=== PATIENT | male | born 1955 | race American Indian/Alaskan Native ===

== ENCOUNTER 2017-12-16 18:55 | Emergency (ER) | payer MEDICAID, OTHER ==
[2017-12-16] MEDS ORDERED: Diphtheria,Pertussis(Acell),Tetanus Vaccine 0.5 ML SDV IM ONE (19:25)
[2017-12-16] MEDS ORDERED: Sodium Chloride 0.9% 10 ML Syringe FLUSH PRN (19:25)
[2017-12-16] MEDS ORDERED: Ampicillin/Sulbactam Na 3 GM in Sodium Chloride 0.9% 100 ML IV ONE (19:27)
[2017-12-16 19:30] VITALS: BP 161/86
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
--- NOTE | 2017-12-17 09:10 | CR ---
Right foot There is severe bunion formation at the first MTP joint. It is approximately 50% uncovering of the di stal metatarsal head. There are dislocations of the second and third MTP joints. Multiple hammertoe d eformities are demonstrated. There is no evidence of fracture. Impression: 1. Severe bunion information. 2. Dislocated second and third MTP joints. 3. Hammertoe's.
== END 2017-12-16 20:25 | disposition home or self-care (01) ==
LOC: JP.ED 18:55
DX: S91.331A Puncture wound without foreign body, right foot, initial encounter (principal); E11.621 Type 2 diabetes mellitus with foot ulcer; L97.519 Non-pressure chronic ulcer of other part of right foot with unspecified severity; E11.42 Type 2 diabetes mellitus with diabetic polyneuropathy; F17.210 Nicotine dependence, cigarettes, uncomplicated; W45.0XXA Nail entering through skin, initial encounter; Z88.5 Allergy status to narcotic agent; Z88.6 Allergy status to analgesic agent; Z79.899 Other long term (current) drug therapy
CPT/HCPCS: 73630-26-RT; 73630-RT; 90471; 90715; 96365; 99284-25; J0295; J7030; J7050

== ENCOUNTER 2018-02-15 20:48 | Emergency (ER) | payer MEDICAID, OTHER ==
[2018-02-15 21:01] VITALS: BP 166/94
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
== END 2018-02-15 22:39 | disposition home or self-care (01) ==
LOC: JP.ED 20:48
DX: E11.621 Type 2 diabetes mellitus with foot ulcer (principal); E11.40 Type 2 diabetes mellitus with diabetic neuropathy, unspecified; F17.210 Nicotine dependence, cigarettes, uncomplicated; Z88.6 Allergy status to analgesic agent; Z88.5 Allergy status to narcotic agent; Z79.899 Other long term (current) drug therapy; Z79.84 Long term (current) use of oral hypoglycemic drugs
CPT/HCPCS: 99283

== ENCOUNTER 2018-12-27 20:20 | Inpatient (IN) | payer MEDICAID ==
[2018-12-27] MEDS ORDERED: Linezolid 600 MG in Premix Bag 1 BAG IV SCH (21:00)
[2018-12-27] MEDS ORDERED: Lactated Ringers 1,000 ML IV SCH (21:00)
[2018-12-27] MEDS ORDERED: Ondansetron 4 MG/2 ML SDV IVPUSH ONE (21:02)
[2018-12-27] MEDS ORDERED: HYDROmorphone 1 MG/ML Syringe IVPUSH ONE (21:03)
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
[2018-12-27] MEDS ORDERED: Ondansetron 4 MG/2 ML SDV IV PRN (22:32)
--- NOTE | 2018-12-27 22:42 | CRLCR ---
INDICATION: ULCER GREAT TOE COMPARISON: 12/16/2017. FINDINGS: Two views of the right foot demonstrate postsurgical change from amputation of the 2nd toe at the level of the MTP joint, unchanged. There is new aggressive appearing osseous resorption at the medial margin of the head of the 1st metatarsal, highly suspicious for osteomyelitis. There is overlying soft tissue irregularity suggesting and ulcer. Advanced degenerative changes of the digits. No fracture identified. Diffuse soft tissue swelling. IMPRESSION: 1. Aggressive appearing osseous resorption at the medial head of the 1st metatarsal, highly suspicious for osteomyelitis. Probable overlying soft tissue ulcer. 2. Stable postsurgical changes from 2nd digit amputation. Dictated by Juan Rico MD @ 12/27/2018 10:40:44 PM Dictated by: Juan Rico MD @ 12/27/2018 22:40:57 (Electronically Signed)
[2018-12-27] MEDS: Lactated Ringers 1,000 ML IV SCH (23:38)
[2018-12-28] MEDS: HYDROmorphone 1 MG/ML Syringe IVPUSH PRN ×2 (00:22→07:25)
[2018-12-28] MEDS: Lactated Ringers 1,000 ML IV SCH (07:31)
[2018-12-28] MEDS: Linezolid 600 MG in Premix Bag 1 BAG IV SCH ×2 (11:09→22:24)
[2018-12-28] MEDS ORDERED: Midazolam 1 MG/ML 2 ML SDV ONE (11:41)
[2018-12-28] MEDS ORDERED: fentaNYL 100 MCG/2 ML SDV ONE (11:41)
[2018-12-28] MEDS ORDERED: Propofol 200 MG/20 ML SDV ONE (11:41)
[2018-12-28] MEDS ORDERED: Bupivacaine 0.5% 30 ML SDV ONE (11:42)
[2018-12-28] MEDS ORDERED: Bupivacaine 0.5% 50 ML MDV ONE (11:44)
[2018-12-28] MEDS ORDERED: Acetaminophen/HYDROcodone 325-5 MG Tab PO PRN (11:45)
[2018-12-28] MEDS ORDERED: fentaNYL 100 MCG/2 ML SDV IVPUSH PRN ×2 (11:45)
[2018-12-28] MEDS: metFORMIN 500 MG Tab PO SCH (14:46)
[2018-12-28] MEDS: glipiZIDE 5 MG Tab PO SCH (14:46)
[2018-12-28] MEDS: Lisinopril 20 MG Tab PO SCH (14:47)
[2018-12-28] MEDS: Nicotine 21 MG/24 Hr Patch TRDERM SCH (14:47)
--- NOTE | 2018-12-28 15:24 | PN ---
DATE OF SERVICE: 12/28/2018 SUBJECTIVE: The patient is doing quite well. He had good response to the antibiotics overnight. OBJECTIVE: VITAL SIGNS: Stable. CARDIOVASCULAR: Regular rhythm and rate. RESPIRATORY: Lungs are clear to auscultation bilaterally. SKIN: Dressings intact. Foul odor noted in the wound itself. ASSESSMENT AND PLAN: To the OR today for amputation of the right great toe. Risks, benefits, alternatives, and limitations including, but not limited to infection, bleeding, and BKA and AKA requirements along with the role of wound VAC and reoperation were all explained to the patient. He said he understands these risks and wished to proceed. Carter Barbour MD /[id number]
[2018-12-28] MEDS: Acetaminophen/HYDROcodone 325-5 MG Tab PO PRN ×2 (15:51→22:16)
--- NOTE | 2018-12-28 19:15 | CONS ---
DATE OF SERVICE: 12/26/2018 REFERRING PHYSICIAN: CONSULTING PHYSICIAN: Carter Barbour MD CONSULTING PHYSICIAN: Patrice Abraham MD REASON FOR CONSULTATION: Concern for osteomyelitis. HISTORY OF PRESENT ILLNESS: A 63-year-old male who is a poor historian with respect to his medical history. He presents with a wound on the medial aspect of his right foot over his metatarsal head. The time with respect to this is unknown, most likely in conversations with him, this has been present for weeks to months, modified by diabetes. He states his blood sugar is "well controlled" with blood sugars between 80 and 120. The patient does have a previous history amputation of his right second toe previously. SOCIAL HISTORY: He does present with family today. FAMILY HISTORY: Noncontributory at this moment. REVIEW OF SYSTEMS: GENERAL: No specific concerns. HEENT: No applicable differences. CARDIOVASCULAR: History of heart attack approximately year and half ago possibly. The patient is not quite sure that might not have been sensitive. ABDOMEN: Shows large ex-lap incision which he alluded to that this might have been an AAA repair, although he is not quite sure on that either. GASTROINTESTINAL: No blood in stool. GENITOURINARY: No dysuria. NEUROLOGICAL: No changes. PSYCHIATRIC: No changes. The remainder of review of systems was reviewed and negative. Endocrine as above. PHYSICAL EXAMINATION: VITAL SIGNS: Stable. HEENT: Pupils are equal. NECK: Supple. LUNGS: Clear. CARDIOVASCULAR: Regular rhythm and rate. ABDOMEN: Bowel sounds positive. Midline incision as described above. EXTREMITIES: On the right foot medial aspect over the metacarpal head, there is an ulceration which is consistent with probably diabetic wound, full thickness approximately 120 cm in size with fat layer and foul odor. LABORATORY RESULTS: Show a slightly elevated white blood cell count. Creatinine is 1.3. IMAGING: Shows osteomyelitis of metatarsal head on the right great toe. PLAN: The patient will be admitted overnight. He will be started immediately on antibiotics. We will plan for amputation of metatarsal head as indicated procedures first thing in the a.m. The patient was explained risks, benefits, alternatives, limitations including but not limited to infection, bleeding, requirement for reoperation, the possibility of septic shock, further amputation such as AKA and BKA and other risks not listed here. Also discussed the possibility and probability of a wound VAC. The patient understands all these and wishes to proceed. Carter Barbour MD /[id number]
[2018-12-29] MEDS: Lactated Ringers 1,000 ML IV SCH (01:04)
--- NOTE | 2018-12-29 08:33 | PN ---
DATE OF SERVICE: 12/29/2018 SUBJECTIVE: The patient is doing quite well. Pain is well controlled. No nausea, vomiting, shortness of breath, or chest pain. He does feel significantly better after the amputation. OBJECTIVE: VITAL SIGNS: Stable. CARDIOVASCULAR: Regular rhythm and rate. RESPIRATORY: Lungs are clear to auscultation bilaterally. SKIN: Wound VAC is intact. ASSESSMENT: Status post great toe amputation. PLAN: The patient will be discharged as soon as Discharge Planning can arrange home health care for wound VAC change every 3 days and Invanz 1 g IV q.24 hours x4 weeks. Carter Barbour MD /[id number]
[2018-12-29] MEDS: metFORMIN 500 MG Tab PO SCH (09:30)
[2018-12-29] MEDS: glipiZIDE 5 MG Tab PO SCH (09:30)
[2018-12-29] MEDS: Nicotine 21 MG/24 Hr Patch TRDERM SCH (09:30)
[2018-12-29] MEDS: Enoxaparin 40 MG/0.4 ML Syringe SUBCUT SCH (09:30)
[2018-12-29] MEDS: Lisinopril 20 MG Tab PO SCH (09:30)
[2018-12-29] MEDS: Linezolid 600 MG in Premix Bag 1 BAG IV SCH ×2 (11:38→22:19)
[2018-12-29] MEDS: Acetaminophen/HYDROcodone 325-5 MG Tab PO PRN (22:21)
[2018-12-30] MEDS: Acetaminophen/HYDROcodone 325-5 MG Tab PO PRN (03:42)
[2018-12-30 07:02] VITALS: BP 119/67
--- NOTE | 2018-12-30 07:59 | OR ---
DATE OF PROCEDURE: 12/28/2018 SURGEON: Carter Barbour MD PROCEDURES: 1. Right ray amputation with amputation of metatarsal head, right great toe. 2. Wound VAC placement. 3. Debridement, right medial wound, full thickness area debrided, rim edge, 1.8 x 2.2 cm ([id number]). 4. Z-plasty, right great toe amputation site. COMPLICATIONS: None. WOOD SCIENCE PROFESSOR: None. ANESTHESIA: MAC block/digital block. RISKS: Risks, benefits, alternatives, limitations including, but not limited to, infection, bleeding, subsequent requirement for BK or AK requirement for reoperation, and other risks not listed here were explained to the patient, who wished to proceed. PROCEDURE IN DETAIL: The patient was placed in supine position. After digital block and prepping and draping, a circumferential incision was made around the base of the toe and linear incision in line with the metatarsal would also be extended superior. Both these incisions were performed with 15 blade and subsequently followed with electrocautery. The toe itself was amputated using a TPS system. This would be sent as specimen 1. The ray type incision was continued down with electrocautery. The metatarsal head would be amputated greater than approximately 50% with a TPS. This was sent for specimen metatarsal head. Ligaments and tendons were stretched, amputated, and tied. Wound was thoroughly irrigated. The lateral wound communicated directly into the distal aspect of the metatarsal head. Because of this, a Z-type flap would have to performed. As essentially 3 lines of the Z-flap were already performed, they were then rotated and covered over this. The angles were reapproximated with 3-0 Vicryl and 2-0 nylon with gladys to reinforce. A single piece of iodoform gauze was placed from the incision to the wound itself. This was all thoroughly irrigated again. The wound VAC was then cut to size, placed, and a skin seal was performed. No further dressings were applied. The patient tolerated the procedure well. Carter Barbour MD /[id number]
[2018-12-30] MEDS: glipiZIDE 5 MG Tab PO SCH (08:01)
[2018-12-30] MEDS: Lisinopril 20 MG Tab PO SCH (08:01)
[2018-12-30] MEDS: metFORMIN 500 MG Tab PO SCH (08:01)
[2018-12-30] MEDS: Nicotine 21 MG/24 Hr Patch TRDERM SCH (08:02)
[2018-12-30] MEDS: Enoxaparin 40 MG/0.4 ML Syringe SUBCUT SCH (08:02)
[2018-12-30] MEDS ORDERED: Ertapenem 1 GM in Sodium Chloride 0.9% 100 ML IV SCH (09:00)
--- NOTE | 2018-12-30 10:22 | PN ---
DATE OF SERVICE: 12/30/2018 SUBJECTIVE: The patient continues to slowly improve. No nausea, vomiting, shortness of breath, or chest pain. The patient is tolerating diet. He is having bowel movements. OBJECTIVE: VITAL SIGNS: Stable. He remains afebrile. CARDIOVASCULAR: Regular rhythm and rate. RESPIRATORY: Lungs are clear to auscultation bilaterally. EXTREMITIES: Wound itself shows no evidence of cellulitis. There is some slight maceration around the edge of the wound. This is typical with wound VAC placement. ASSESSMENT: Status post toe amputation. PLAN: We will continue to work on discharge planning. Family advises me that his plan is to go home with the sister. I do not think that is the most advisable situation. We will continue to have Discharge Planning working on that. Carter Barbour MD /[id number]
--- NOTE | 2019-01-01 10:56 | DISCH ---
PROCEDURE PERFORMED DURING THIS HOSPITALIZATION: Re-amputation, right great toe and wound VAC placement. SUMMARY OF HOSPITAL COURSE: A pleasant 63-year-old male, who was seen and diagnosed with osteomyelitis of his metatarsal head. The patient was taken to the operating room and underwent a successful amputation. The patient also had a large open wound associated with this and this was dressed with a wound VAC. The patient continued to progress through his hospitalization and was treated with Invanz antibiotics. The patient was coordinated with Discharge Planning, who had recommended in conjunction with myself assisted correction facility versus home health care with IV antibiotics for 6 weeks. The patient decided to leave [facility]. This was due to the fact he did not want any further treatment. The patient was instructed and educated multiple times in plain [place] the fact that the patient will have worsening infection without any further treatment, which can result in amputation, septic shock, or . This was explained by the and the nursing staff several times. The patient understands these risks. He was offered followup clinic appointments. He was offered alternatives to this plan. He was offered multiple different versions of this plan, but has electively decided to leave.
== END 2018-12-30 11:50 | disposition left against medical advice (07) | DRG 617 ==
LOC: JP.ED 20:20 → JP.MS 22:32
PROVIDERS: ADMIT Surgery; ATTEND Surgery
PROC: 0Y6P0Z0 Detachment at Right 1st Toe, Complete, Open Approach (ICD-10-PCS; principal; 2018-12-28)
PROC: 0JDQ0ZZ Extraction of Right Foot Subcutaneous Tissue and Fascia, Open Approach (ICD-10-PCS; 2018-12-28)
PROC: 0HN Skin and Breast, Release (ICD-10-PCS; 2018-12-28)
PROC: 05HY33Z Insertion of Infusion Device into Upper Vein, Percutaneous Approach (ICD-10-PCS; 2018-12-29)
DX: E11.69 Type 2 diabetes mellitus with other specified complication (principal); M86.9 Osteomyelitis, unspecified; E11.621 Type 2 diabetes mellitus with foot ulcer; L97.519 Non-pressure chronic ulcer of other part of right foot with unspecified severity; Z79.84 Long term (current) use of oral hypoglycemic drugs; Z53.21 Procedure and treatment not carried out due to patient leaving prior to being seen by health care provider; E11.42 Type 2 diabetes mellitus with diabetic polyneuropathy; F17.210 Nicotine dependence, cigarettes, uncomplicated; I25.10 Atherosclerotic heart disease of native coronary artery without angina pectoris; I25.2 Old myocardial infarction; Z95.5 Presence of coronary angioplasty implant and graft; F32.9 Major depressive disorder, single episode, unspecified; H54.7 Unspecified visual loss; K08.109 Complete loss of teeth, unspecified cause, unspecified class; Z79.82 Long term (current) use of aspirin; Z88.5 Allergy status to narcotic agent; Z88.8 Allergy status to other drugs, medicaments and biological substances; Z89.421 Acquired absence of other right toe(s)
CPT/HCPCS: 36415; 73620-RT; 80048; 80053; 82962; 83605; 85025; 85027; 86140; 87040; 87070; 87075; 87077; 87186; 87205; 88304; 88305; 88311; 96365; 96368; 96375; 97162-GP; 97530-GP; 97605; 99284-25; A9270-GY; C1751; J1170; J1335; J1650; J2020; J2250; J2405; J2704; J3010; J3370; J3490; J7030; J7050; J7120

== ENCOUNTER 2019-04-06 06:39 | Emergency (ER) | payer MEDICAID ==
[2019-04-06] MEDS ORDERED: fentaNYL 100 MCG/2 ML SDV IVPUSH ONE ×2 (07:18→09:36)
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
[2019-04-06] MEDS ORDERED: Lactated Ringers 1,000 ML IV SCH (07:30)
[2019-04-06] MEDS ORDERED: Ertapenem 1 GM in Sodium Chloride 0.9% 50 ML IV SCH (07:30)
--- NOTE | 2019-04-06 08:55 | CR ---
FOOT RIGHT 2 views CLINICAL HISTORY:Foot ulcer, diabetes FINDINGS:Patient has significant soft tissue swelling involving the foot and ankle. The patient has had previous amputation of the distal aspect of the first metatarsal and the phalanges. Moderate bony overgrowth proximal to the amputation site likely chronic periosteal reaction. There are dorsal subluxations of the second and third phalanges. There is significant deformity of the fifth and sixth phalanges. Impression: Significant soft tissue swelling of the foot and ankle Interval amputation of the first toe at the distal metatarsal since December 21, 2018 Moderate periosteal reaction at the mid metatarsal. Osteomyelitis is not excluded Subluxations at the second third toes deformity of the fourth and fifth phalanges
[2019-04-06 09:47] VITALS: BP 126/78
== END 2019-04-06 10:53 ==
LOC: JP.ED 06:39
DX: L03.115 Cellulitis of right lower limb (principal); I25.2 Old myocardial infarction; I12.9 Hypertensive chronic kidney disease with stage 1 through stage 4 chronic kidney disease, or unspecified chronic kidney disease; E11.22 Type 2 diabetes mellitus with diabetic chronic kidney disease; N18.9 Chronic kidney disease, unspecified; E11.40 Type 2 diabetes mellitus with diabetic neuropathy, unspecified; E78.00 Pure hypercholesterolemia, unspecified; F17.210 Nicotine dependence, cigarettes, uncomplicated; Z88.6 Allergy status to analgesic agent; Z88.5 Allergy status to narcotic agent; Z79.84 Long term (current) use of oral hypoglycemic drugs; Z79.82 Long term (current) use of aspirin; Z79.02 Long term (current) use of antithrombotics/antiplatelets; Z79.899 Other long term (current) drug therapy; Z89.411 Acquired absence of right great toe
CPT/HCPCS: 36415; 73620; 80053; 83605; 85025; 86140; 87040; 96361; 96365; 96375; 96376; 99284; J1335; J3010; J7050; J7120

== ENCOUNTER 2019-09-25 19:33 | Emergency (ER) | payer MEDICAID ==
[2019-09-25 20:06] VITALS: BP 167/99; PULSE 102
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
--- NOTE | 2019-09-25 20:57 | CRLCR ---
Indication: Diabetic foot. Technique: Three views of the right foot. Comparison: April 06, 2019. Findings: Amputation other great toe is identified at the mid-diaphysis of the 1st metatarsal. Irregularity of the residual metatarsal is identified, stable. Subluxation of the 2nd and 3rd toes is identified. New irregularity and increased irregularity of the distal 3rd metatarsal is identified. Suspected acute osteomyelitis is identified. Air is identified within the soft tissues adjacent to the distal 2nd and 3rd metatarsals. Degenerative changes of the foot are identified. Impression: Findings suspicious for osteomyelitis of the distal 3rd metatarsal Dictated by Eugenie Barragan MD @ Sep 25 2019 8:52PM Signed by Dr. Eugenie Barragan @ Sep 25 2019 8:54PM
== END 2019-09-25 21:38 | disposition home or self-care (01) ==
LOC: JP.ED 19:33
DX: M86.171 Other acute osteomyelitis, right ankle and foot (principal); I25.10 Atherosclerotic heart disease of native coronary artery without angina pectoris; I25.2 Old myocardial infarction; E11.40 Type 2 diabetes mellitus with diabetic neuropathy, unspecified; E11.22 Type 2 diabetes mellitus with diabetic chronic kidney disease; I12.9 Hypertensive chronic kidney disease with stage 1 through stage 4 chronic kidney disease, or unspecified chronic kidney disease; N18.9 Chronic kidney disease, unspecified; F17.210 Nicotine dependence, cigarettes, uncomplicated; Z79.899 Other long term (current) drug therapy; Z88.6 Allergy status to analgesic agent; Z88.5 Allergy status to narcotic agent; Z79.82 Long term (current) use of aspirin; Z79.01 Long term (current) use of anticoagulants
CPT/HCPCS: 36415; 73630-RT; 80053; 83605; 85025; 99282; 99283

== ENCOUNTER 2021-02-20 09:27 | Emergency (ER) | payer MEDICAID ==
[2021-02-20] MEDS ORDERED: Sodium Chloride 0.9% 10 ML Syringe FLUSH PRN (09:43)
[2021-02-20] MEDS ORDERED: Aspirin 81 MG Tab.Chew PO ONE (09:45)
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
--- NOTE | 2021-02-20 11:17 | CR ---
CHEST: 2 view CLINICAL HISTORY:SOB COMPARISON:2016 FINDINGS: The heart size, pulmonary vascularity and hilar structures are normal. No infiltrate effusion or pneumothorax is seen. IMPRESSION: No acute cardiopulmonary process.
[2021-02-20] MEDS ORDERED: Sodium Chloride 0.9% 10 ML Syringe FLUSH ONE (11:35)
[2021-02-20] MEDS ORDERED: Iopamidol 755 Mg/ML 100 ML Bottle IV SCH (11:45)
[2021-02-20] MEDS ORDERED: Sodium Chloride 0.9% 100 ML IV SCH (11:45)
--- NOTE | 2021-02-20 12:37 | CT ---
Ang Chest CLINICAL HISTORY: SOB, high d-dimer TECHNIQUE: Thin section axial contiguous tomographic sections were taken through the chest after bolus IV iodinated contrast administration. Coronal and sagittal images were reconstructed. Auto dosage reduction and iterative reconstruction techniques employed. FINDINGS: There is some breathing motion. There are some small patchy bibasal densities which likely represent some atelectasis. No pulmonary masses identified. There are some mild interstitial prominence. There is mild generalized bronchial thickening. There are a few tiny nodular densities and some tree-in-bud formation in the lower lobes bilaterally No mediastinal mass or suspicious lymphadenopathy is seen. No filling defects are identified in the pulmonary arteries. IMPRESSION: No evidence of pulmonary embolus Mild bronchial thickening and mild interstitial prominence is felt to be chronic There are a few scattered small nodules with some tree-in-bud formation. This may be related to chronic infection
[2021-02-20] MEDS ORDERED: Metoprolol Tartrate 25 MG Tab PO ONE (12:50)
[2021-02-20] MEDS ORDERED: Ticagrelor 90 MG Tab PO ONE (12:50)
[2021-02-20] MEDS ORDERED: Heparin Sodium 5,000 Units/ML Vial IVPUSH ONE (12:51)
[2021-02-20] MEDS ORDERED: Heparin Sodium/D5W 25,000 UNITS/500 ML BAG IV SCH (13:00)
[2021-02-20] MEDS ORDERED: Furosemide 40 MG Tab PO ONE (13:21)
[2021-02-20 13:43] VITALS: BP 126/77; PULSE 86
== END 2021-02-20 13:51 | disposition home or self-care (01) ==
LOC: JP.ED 09:27
DX: I21.4 Non-ST elevation (NSTEMI) myocardial infarction (principal); I25.10 Atherosclerotic heart disease of native coronary artery without angina pectoris; E78.00 Pure hypercholesterolemia, unspecified; I25.2 Old myocardial infarction; E11.40 Type 2 diabetes mellitus with diabetic neuropathy, unspecified; J81.1 Chronic pulmonary edema; E11.65 Type 2 diabetes mellitus with hyperglycemia; E11.22 Type 2 diabetes mellitus with diabetic chronic kidney disease; I12.9 Hypertensive chronic kidney disease with stage 1 through stage 4 chronic kidney disease, or unspecified chronic kidney disease; N18.9 Chronic kidney disease, unspecified; Z88.5 Allergy status to narcotic agent; Z88.6 Allergy status to analgesic agent; Z79.82 Long term (current) use of aspirin; Z79.02 Long term (current) use of antithrombotics/antiplatelets; Z79.899 Other long term (current) drug therapy
CPT/HCPCS: 36415; 71046; 71275; 80048; 83880; 84484; 85027; 85379; 93005; 99285; A9270; Q9967

== ENCOUNTER 2021-10-07 03:47 | Emergency (ER) | payer MEDICAID ==
[2021-10-07] MEDS ORDERED: Furosemide 40 MG/4 ML VIAL IVPUSH ONE (04:49)
[2021-10-07 05:25] LABS: CORONAVIRUS COVID-19 NAA NEGATIVE (NEGATIVE)
[2021-10-07 06:08] VITALS: PULSE 96
[2021-10-07 07:33] VITALS: BP 135/90
== END 2021-10-07 08:44 | disposition left against medical advice (07) ==
LOC: JP.ED 03:47
DX: I21.4 Non-ST elevation (NSTEMI) myocardial infarction (principal); I25.10 Atherosclerotic heart disease of native coronary artery without angina pectoris; E78.00 Pure hypercholesterolemia, unspecified; I10 Essential (primary) hypertension; I25.2 Old myocardial infarction; E11.9 Type 2 diabetes mellitus without complications; Z88.5 Allergy status to narcotic agent; Z88.8 Allergy status to other drugs, medicaments and biological substances; Z79.82 Long term (current) use of aspirin; Z79.02 Long term (current) use of antithrombotics/antiplatelets; Z79.899 Other long term (current) drug therapy; Z20.822 Contact with and (suspected) exposure to COVID-19
CPT/HCPCS: 0241U; 36415; 71045; 80053; 81001; 83880; 84484; 85025; 85610; 93010; 96374; 99283; 99285-25; J1940

== ENCOUNTER 2022-01-10 23:40 | Emergency (ER) | payer MEDICAID ==
[2022-01-10 23:43] VITALS: BP 150/94; PULSE 100
[2022-01-11 00:17] LABS: ESTIMATED GFR 38 (>60)
[2022-01-11 00:20] LABS: TROPONIN I HIGH SENSITIVITY 445.2 pg/mL (<=60.3)
[2022-01-11] MEDS ORDERED: Furosemide 40 MG/4 ML VIAL IVPUSH ONE (00:46)
[2022-01-11] MEDS ORDERED: Furosemide 40 MG Tab PO ONE (01:02)
== END 2022-01-11 01:16 | disposition left against medical advice (07) ==
LOC: JP.ED 23:40
DX: I11.0 Hypertensive heart disease with heart failure (principal); I50.1 Left ventricular failure, unspecified; I25.10 Atherosclerotic heart disease of native coronary artery without angina pectoris; E78.00 Pure hypercholesterolemia, unspecified; E11.40 Type 2 diabetes mellitus with diabetic neuropathy, unspecified; F17.210 Nicotine dependence, cigarettes, uncomplicated; Z95.5 Presence of coronary angioplasty implant and graft; Z88.5 Allergy status to narcotic agent; Z88.8 Allergy status to other drugs, medicaments and biological substances; Z79.82 Long term (current) use of aspirin; Z79.02 Long term (current) use of antithrombotics/antiplatelets; Z79.01 Long term (current) use of anticoagulants
CPT/HCPCS: 36415; 71045; 80053; 83880; 84484; 85025; 86140; 93005; 93010; 99284; 99285; A9270

== ENCOUNTER 2022-09-15 05:54 | Emergency (ER) | payer MEDICARE, MEDICAID ==
[2022-09-15 06:41] LABS: CORONAVIRUS COVID-19 NAA NEGATIVE (NEGATIVE)
[2022-09-15 06:51] LABS: ESTIMATED GFR 29 mL/min (>60)
[2022-09-15 06:58] LABS: TROPONIN I HIGH SENSITIVITY 399.1 pg/mL (<=60.3)
[2022-09-15] MEDS ORDERED: Ondansetron 4 MG Tab.DIS PO ONE (08:04)
[2022-09-15 08:24] VITALS: BP 137/82; PULSE 98
[2022-09-15] MEDS ORDERED: Furosemide 40 MG Tab PO ONE (09:07)
== END 2022-09-15 09:20 | disposition home or self-care (01) ==
LOC: JP.ED 05:54
DX: F44.89 Other dissociative and conversion disorders (principal); R44.0 Auditory hallucinations; F15.10 Other stimulant abuse, uncomplicated; B97.4 Respiratory syncytial virus as the cause of diseases classified elsewhere; I13.0 Hypertensive heart and chronic kidney disease with heart failure and stage 1 through stage 4 chronic kidney disease, or unspecified chronic kidney disease; E11.22 Type 2 diabetes mellitus with diabetic chronic kidney disease; N18.30 Chronic kidney disease, stage 3 unspecified; I50.43 Acute on chronic combined systolic (congestive) and diastolic (congestive) heart failure; I25.10 Atherosclerotic heart disease of native coronary artery without angina pectoris; I25.2 Old myocardial infarction; E78.00 Pure hypercholesterolemia, unspecified; F32.A Depression, unspecified; Z20.822 Contact with and (suspected) exposure to COVID-19; Z88.5 Allergy status to narcotic agent; Z79.899 Other long term (current) drug therapy
CPT/HCPCS: 0241U; 36415; 36600; 70450; 71045; 80053; 80305; 80307; 81001; 82140; 82803; 82947; 83605; 83880; 84484; 85025; 85610; 85730; 93005; 93010; 99285; A9270; Q0162

== ENCOUNTER 2022-10-02 17:45 | Emergency (ER) | payer MEDICARE, MEDICAID ==
[2022-10-02] MEDS ORDERED: Sodium Chloride 0.9% 10 ML Syringe FLUSH PRN (18:04)
[2022-10-02 18:41] LABS: ESTIMATED GFR 27 mL/min (>60)
[2022-10-02 18:56] LABS: CORONAVIRUS COVID-19 NAA NEGATIVE (NEGATIVE)
[2022-10-02 20:11] VITALS: BP 116/73; PULSE 70
== END 2022-10-02 20:08 | disposition home or self-care (01) ==
LOC: JP.ED 17:45
DX: J18.9 Pneumonia, unspecified organism (principal); R41.0 Disorientation, unspecified; F15.10 Other stimulant abuse, uncomplicated; I25.10 Atherosclerotic heart disease of native coronary artery without angina pectoris; I13.0 Hypertensive heart and chronic kidney disease with heart failure and stage 1 through stage 4 chronic kidney disease, or unspecified chronic kidney disease; E11.22 Type 2 diabetes mellitus with diabetic chronic kidney disease; N18.9 Chronic kidney disease, unspecified; I50.9 Heart failure, unspecified; E78.00 Pure hypercholesterolemia, unspecified; I25.2 Old myocardial infarction; E11.40 Type 2 diabetes mellitus with diabetic neuropathy, unspecified; Z88.6 Allergy status to analgesic agent; Z88.5 Allergy status to narcotic agent; Z79.82 Long term (current) use of aspirin; Z79.02 Long term (current) use of antithrombotics/antiplatelets; Z79.899 Other long term (current) drug therapy; Z79.84 Long term (current) use of oral hypoglycemic drugs; Z20.822 Contact with and (suspected) exposure to COVID-19
CPT/HCPCS: 0241U; 36415; 71046; 80053; 80305; 80307; 81001; 83605; 85025; 87040; 99285; J3490

== ENCOUNTER 2022-10-06 11:48 | Emergency (ER) | payer MEDICARE, MEDICAID ==
[2022-10-06] MEDS ORDERED: Sodium Chloride 0.9% 1,000 ML IV SCH (12:30)
[2022-10-06] MEDS ORDERED: Sodium Chloride 0.9% 10 ML Syringe FLUSH PRN (12:30)
[2022-10-06] MEDS ORDERED: Ketorolac 30 MG/ML SDV IVPUSH ONE (12:31)
[2022-10-06] MEDS ORDERED: diphenhydrAMINE 50 MG/ML SDV IVPUSH ONE (12:32)
[2022-10-06] MEDS ORDERED: Prochlorperazine 10 MG/2 ML SDV IVPUSH ONE (12:32)
[2022-10-06 13:16] LABS: ESTIMATED GFR 24 mL/min (>60)
[2022-10-06 13:19] LABS: TROPONIN I HIGH SENSITIVITY 223.3 pg/mL (<=60.3)
[2022-10-06 18:37] VITALS: BP 131/67; PULSE 74
== END 2022-10-06 19:02 | disposition home or self-care (01) ==
LOC: JP.ED 11:48
DX: I25.10 Atherosclerotic heart disease of native coronary artery without angina pectoris (principal); I13.0 Hypertensive heart and chronic kidney disease with heart failure and stage 1 through stage 4 chronic kidney disease, or unspecified chronic kidney disease; E11.22 Type 2 diabetes mellitus with diabetic chronic kidney disease; N18.4 Chronic kidney disease, stage 4 (severe); I50.9 Heart failure, unspecified; E78.00 Pure hypercholesterolemia, unspecified; I25.2 Old myocardial infarction; E11.40 Type 2 diabetes mellitus with diabetic neuropathy, unspecified; Z88.6 Allergy status to analgesic agent; Z88.5 Allergy status to narcotic agent; Z79.899 Other long term (current) drug therapy; Z79.02 Long term (current) use of antithrombotics/antiplatelets; Z79.82 Long term (current) use of aspirin; Z79.84 Long term (current) use of oral hypoglycemic drugs; Z79.01 Long term (current) use of anticoagulants
CPT/HCPCS: 36415; 36600; 70450; 80053; 80307; 82140; 82803; 83605; 84484; 85025; 85610; 96361; 96374; 96375; 99284; J0780; J1200; J1885; J3490; J7030

== ENCOUNTER 2022-12-22 08:23 | Emergency (ER) | payer MEDICARE, MEDICAID ==
[2022-12-22] MEDS ORDERED: Furosemide 20 MG/2 ML VIAL IVPUSH ONE (09:16)
[2022-12-22] MEDS ORDERED: Albuterol 0.083% 2.5 MG/3 ML Neb Soln NEB ONE (09:23)
[2022-12-22 09:33] LABS: BASE EXCESS ARTERIAL -2.9 mm/L; CARBOXYHEMOGLOBIN 2.2 % (0.0-1.6); METHEMOGLOBIN 0.7 %; O2 SATURATION ARTERIAL 97.2 % (95.0-98.0); OXYHEMOGLOBIN 94.4 %; PCO2 ARTERIAL 29.9 mmHg (35.0-42.0); PO2 ARTERIAL 84.2 mmHg (75.0-100.0); TOTAL HEMOGLOBIN 10.7 g/dL (13.5-18.0)
[2022-12-22 09:36] LABS: BASOPHILS ABSOLUTE AUTO 0.07 K/uL (0.00-0.10); EOSINOPHILS ABSOLUTE AUTO 0.31 K/uL (0.00-0.40); EOSINOPHILS PERCENT AUTO 4.6 % (0.0-5.4); HEMATOCRIT 33.9 % (38.4-49.7); HEMOGLOBIN 10.8 g/dL (12.9-16.9); IMMATURE GRAN ABSOLUTE AUTO 0.03 K/uL (0.00-0.23); IMMATURE GRAN PERCENT AUTO 0.4 % (0.0-0.7); LYMPHOCYTES ABSOLUTE AUTO 0.66 K/uL (0.8-3.3); LYMPHOCYTES PERCENT AUTO 9.8 % (11.4-47.7); MEAN CORPUSCULAR HEMOGLOBIN 26.1 pg (31.6-35.5); MEAN CORPUSCULAR HGB CONC 31.9 g/dL (31.6-35.5); MEAN CORPUSCULAR VOLUME 81.9 fL (81.4-99.0); MONOCYTES ABSOLUTE AUTO 0.79 K/uL (0.20-0.90); MONOCYTES PERCENT AUTO 11.8 % (3.3-12.6); NEUTROPHILS ABSOLUTE AUTO 4.85 K/uL (1.0-7.6); NEUTROPHILS PERCENT AUTO 72.4 % (40.0-78.1); PLATELET COUNT,PLT 214 K/uL (130-375); RED BLOOD CELL COUNT 4.14 M/uL (4.14-5.76); WHITE BLOOD CELL COUNT,WBC 6.7 K/uL (3.2-11.0)
[2022-12-22 09:53] LABS: INR 1.2; PROTHROMBIN TIME 11.6 sec (9.2-10.6)
[2022-12-22 10:03] VITALS: BP 126/82; PULSE 69
[2022-12-22 10:05] LABS: A/G RATIO 0.4 (1.2-2.2); ALANINE AMINOTRANSFERASE,ALT 18 U/L (12-78); ALBUMIN 2.1 g/dL (3.4-5.0); ALKALINE PHOSPHATASE 143 U/L (46-116); AMYLASE 48 U/L (25-115); ASPARTATE AMNIOTRANSFERASE,AST 26 U/L (15-37); BILIRUBIN TOTAL 0.9 mg/dL (0.2-1.0); BLOOD UREA NITROGEN,BUN 52 mg/dL (7-18); CALCIUM 7.9 mg/dL (8.5-10.1); CARBON DIOXIDE,CO2 24 mmol/L (21-32); CHLORIDE,CL 102 mmol/L (100-108); CREATININE 2.7 mg/dL (0.8-1.3); EST CRCL DRUG DOSING (CG) 28.16 mL/min; ESTIMATED GFR 25 mL/min (>60); GLUCOSE RANDOM 153 mg/dL (74-106); LIPASE 103 U/L (73-393); MAGNESIUM 1.7 mg/dL (1.8-2.4); PHOSPHORUS 5.6 mg/dL (2.5-4.9); POTASSIUM,K 3.8 mmol/L (3.6-5.2); PRO B-TYPE NATRIUR PEPT,BNPPRO 28088 pg/mL (5-125); SODIUM,NA 135 mmol/L (140-148)
[2022-12-22 10:07] LABS: ANION GAP 12.8 mmol/L (5.0-14.0)
[2022-12-22 10:08] LABS: TROPONIN I HIGH SENSITIVITY 416.6 pg/mL (<=60.3)
[2022-12-22 10:09] LABS: APPEARANCE,URINE CLEAR (CLEAR); BILIRUBIN,URINE NEGATIVE (NEGATIVE); COLOR,URINE YELLOW (YELLOW); GLUCOSE,URINE NEGATIVE (NEGATIVE); KETONES,URINE NEGATIVE (NEGATIVE); LEUKOCYTE ESTERASE,URINE NEGATIVE (NEGATIVE); NITRITE,URINE NEGATIVE (NEGATIVE); OCCULT BLOOD,URINE TRACE-INTACT (NEGATIVE); PH,URINE 5.5 (5.0-8.0); PROTEIN,URINE >=300 mg/dL (NEGATIVE)
[2022-12-22 10:13] LABS: AMORPHOUS SEDIMENT,URINE NOT SEEN; AMPHETAMINES SCREEN, URINE PRESUMPTIVE POSITIVE (NEGATIVE); BACTERIA,URINE NOT SEEN; BARBITURATE SCREEN,URINE NEGATIVE (NEGATIVE); BENZODIAZEPINES SCREEN,URINE NEGATIVE (NEGATIVE); EPITHELIAL CELLS,URINE FEW; METHADONE SCREEN, URINE NEGATIVE (NEGATIVE); METHAMPHETAMINES SCREEN, URINE PRESUMPTIVE POSITIVE (NEGATIVE); MUCUS,URINE FEW; OXYCODONE SCREEN,URINE NEGATIVE (NEGATIVE); PROPOXYPHENE SCREEN,URINE NEGATIVE (NEGATIVE); THC SCREEN,URINE 50 NG/ML NEGATIVE (NEGATIVE); WBC,URINE 0-5 (0-5)
== END 2022-12-22 11:08 | disposition left against medical advice (07) ==
LOC: JP.ED 08:23
DX: I21.4 Non-ST elevation (NSTEMI) myocardial infarction (principal); I13.0 Hypertensive heart and chronic kidney disease with heart failure and stage 1 through stage 4 chronic kidney disease, or unspecified chronic kidney disease; E11.22 Type 2 diabetes mellitus with diabetic chronic kidney disease; N18.9 Chronic kidney disease, unspecified; I50.43 Acute on chronic combined systolic (congestive) and diastolic (congestive) heart failure; I25.10 Atherosclerotic heart disease of native coronary artery without angina pectoris; E78.00 Pure hypercholesterolemia, unspecified; E11.40 Type 2 diabetes mellitus with diabetic neuropathy, unspecified; Z88.5 Allergy status to narcotic agent; Z88.6 Allergy status to analgesic agent; Z79.02 Long term (current) use of antithrombotics/antiplatelets; Z79.01 Long term (current) use of anticoagulants; Z79.82 Long term (current) use of aspirin; Z79.84 Long term (current) use of oral hypoglycemic drugs; Z79.899 Other long term (current) drug therapy; Z20.822 Contact with and (suspected) exposure to COVID-19
CPT/HCPCS: 36415; 36600; 71045; 80053; 80305; 80307; 81001; 82150; 82803; 83605; 83690; 83735; 83880; 84100; 84145; 84484; 85025; 85610; 93005; 94640; 96374; 99284; J1940; U0002

== ENCOUNTER 2023-01-22 18:41 | Emergency (ER) | payer MEDICARE, MEDICAID ==
[2023-01-22] MEDS ORDERED: Sodium Chloride 0.9% 10 ML Syringe FLUSH PRN (19:05)
[2023-01-22] MEDS ORDERED: Naloxone 0.4 MG/ML SDV IVPUSH PRN (19:05)
[2023-01-22] MEDS ORDERED: Furosemide 40 MG/4 ML VIAL IVPUSH ONE (19:06)
[2023-01-22 19:20] LABS: BASOPHILS ABSOLUTE AUTO 0.06 K/uL (0.00-0.10); BASOPHILS PERCENT AUTO 0.7 % (0.1-1.3); EOSINOPHILS PERCENT AUTO 2.2 % (0.0-5.4); HEMATOCRIT 37.7 % (38.4-49.7); HEMOGLOBIN 11.9 g/dL (12.9-16.9); IMMATURE GRAN ABSOLUTE AUTO 0.04 K/uL (0.00-0.23); IMMATURE GRAN PERCENT AUTO 0.4 % (0.0-0.7); LYMPHOCYTES ABSOLUTE AUTO 0.96 K/uL (0.8-3.3); LYMPHOCYTES PERCENT AUTO 10.6 % (11.4-47.7); MEAN CORPUSCULAR HEMOGLOBIN 25.5 pg (31.6-35.5); MEAN CORPUSCULAR HGB CONC 31.6 g/dL (31.6-35.5); MEAN CORPUSCULAR VOLUME 80.9 fL (81.4-99.0); MONOCYTES ABSOLUTE AUTO 1.15 K/uL (0.20-0.90); MONOCYTES PERCENT AUTO 12.7 % (3.3-12.6); NEUTROPHILS ABSOLUTE AUTO 6.68 K/uL (1.0-7.6); NEUTROPHILS PERCENT AUTO 73.4 % (40.0-78.1); PLATELET COUNT,PLT 278 K/uL (130-375); RED BLOOD CELL COUNT 4.66 M/uL (4.14-5.76); WHITE BLOOD CELL COUNT,WBC 9.1 K/uL (3.2-11.0)
[2023-01-22 19:21] LABS: BASE EXCESS ARTERIAL -5.8 mm/L; BICARBONATE,ARTERIAL 17.5 mmol/L (22.0-26.0); CARBOXYHEMOGLOBIN 2.8 % (0.0-1.6); METHEMOGLOBIN 0.6 %; OXYHEMOGLOBIN 96.3 %; PCO2 ARTERIAL 29.2 mmHg (35.0-42.0); TOTAL HEMOGLOBIN 12.2 g/dL (13.5-18.0)
[2023-01-22 19:26] LABS: O2 SATURATION ARTERIAL > 99.3 % (95.0-98.0)
[2023-01-22 19:49] LABS: A/G RATIO 0.4 (1.2-2.2); ALANINE AMINOTRANSFERASE,ALT 24 U/L (12-78); ALBUMIN 2.4 g/dL (3.4-5.0); ALKALINE PHOSPHATASE 135 U/L (46-116); ASPARTATE AMNIOTRANSFERASE,AST 26 U/L (15-37); BLOOD UREA NITROGEN,BUN 67 mg/dL (7-18); CALCIUM 8.4 mg/dL (8.5-10.1); CARBON DIOXIDE,CO2 20 mmol/L (21-32); CHLORIDE,CL 99 mmol/L (100-108); CREATININE 2.7 mg/dL (0.8-1.3); EST CRCL DRUG DOSING (CG) 28.16 mL/min; ESTIMATED GFR 25 mL/min (>60); GLUCOSE RANDOM 170 mg/dL (74-106); PROTEIN TOTAL,TP 8.2 g/dL (6.4-8.2); SODIUM,NA 132 mmol/L (140-148)
[2023-01-22 19:52] LABS: MAGNESIUM 2.1 mg/dL (1.8-2.4); PHOSPHORUS 4.4 mg/dL (2.5-4.9)
[2023-01-22 19:56] LABS: TROPONIN I HIGH SENSITIVITY 311.4 pg/mL (<=60.3)
[2023-01-22 20:11] VITALS: BP 156/106; PULSE 88
[2023-01-22 20:18] LABS: AMPHETAMINES SCREEN, URINE PRESUMPTIVE POSITIVE (NEGATIVE); BARBITURATE SCREEN,URINE NEGATIVE (NEGATIVE); BENZODIAZEPINES SCREEN,URINE NEGATIVE (NEGATIVE); METHADONE SCREEN, URINE NEGATIVE (NEGATIVE); METHAMPHETAMINES SCREEN, URINE PRESUMPTIVE POSITIVE (NEGATIVE); OXYCODONE SCREEN,URINE NEGATIVE (NEGATIVE); PROPOXYPHENE SCREEN,URINE NEGATIVE (NEGATIVE); THC SCREEN,URINE 50 NG/ML NEGATIVE (NEGATIVE)
[2023-01-22 21:39] LABS: INR 1.2; PROTHROMBIN TIME 12.3 sec (9.2-10.6)
== END 2023-01-22 22:06 | disposition home or self-care (01) ==
LOC: JP.ED 18:41
DX: I25.10 Atherosclerotic heart disease of native coronary artery without angina pectoris (principal); I13.0 Hypertensive heart and chronic kidney disease with heart failure and stage 1 through stage 4 chronic kidney disease, or unspecified chronic kidney disease; E11.22 Type 2 diabetes mellitus with diabetic chronic kidney disease; N18.4 Chronic kidney disease, stage 4 (severe); I50.9 Heart failure, unspecified; F15.10 Other stimulant abuse, uncomplicated; E78.00 Pure hypercholesterolemia, unspecified; I25.2 Old myocardial infarction; E11.40 Type 2 diabetes mellitus with diabetic neuropathy, unspecified; Z91.148 Patient's other noncompliance with medication regimen for other reason; Z88.6 Allergy status to analgesic agent; Z88.5 Allergy status to narcotic agent; Z79.82 Long term (current) use of aspirin; Z79.899 Other long term (current) drug therapy; Z79.01 Long term (current) use of anticoagulants; Z79.84 Long term (current) use of oral hypoglycemic drugs
CPT/HCPCS: 36415; 36600; 71045; 80053; 80305; 80307; 82140; 82803; 82947; 83735; 83880; 84100; 84145; 84484; 85025; 85610; 93005; 96374; 96375; 99285; J1940; J2310